=== PATIENT | female | born 1940 | race African-American/Black ===

== ENCOUNTER 2021-09-12 15:23 | Inpatient (IN) | payer MEDICARE, BC ==
[2021-09-12 16:29] LABS: #Lymphocytes 0.9 thou/uL (1.20-3.40); #Neutrophils 11.5 thou/uL (1.40-6.50); %Basophils 0.3 % (0.0-1.0); %Eosinophils 0.2 % (0.0-10.0); %Lymphocytes 6.9 % (21.0-51.0); %Monocytes 7.3 % (0.0-10.0); %Neutrophils 85.3 % (42.0-75.0); Hemoglobin 11.2 g/dL (12.0-16.0); Mean Corpuscular HGB CONC 33.1 g/dL (32.0-36.0); Mean Corpuscular Hemoglobin 29.5 pg (27.0-31.0); Mean Corpuscular Volume 88.9 fL (78.0-98.0); Mean Platelet Volume 6.8 fL (7.4-10.4); Platelet Count 364 thou/uL (130-400); Red Blood Cell (RBC) Count 3.81 mill/uL (4.20-5.40); White Blood Cell (WBC) Count 13.5 thou/uL (4.8-10.8)
[2021-09-12 16:39] LABS: INR-International Normal Ratio 1.1; Prothrombin Time 13.8 sec (12.0-14.7)
[2021-09-12 16:40] LABS: PTT 33.6 sec (22.9-36.1)
[2021-09-12 16:58] LABS: ALT (SGPT) 11 U/L (8-55); AST (SGOT) 17 U/L (5-34); Albumin 3.6 g/dL (3.4-4.8); Alkaline Phosphatase 108 U/L (40-110); Anion Gap 13 mmol/L (10-20); BUN (Urea Nitrogen) 24 mg/dL (9.8-20.1); Bilirubin, Total 0.5 mg/dL (0.2-1.2); Calc. Creatinine Clearance 0 mL/min (70-130); Calcium 9.7 mg/dL (7.8-10.44); Carbon Dioxide 25 mmol/L (23-31); Chloride 98 mmol/L (98-107); Globulin 3.4 g/dL (2.4-3.5); Glucose 132 mg/dL (83-110); Potassium 4.6 mmol/L (3.5-5.1); Sodium 131 mmol/L (136-145)
[2021-09-12 18:05] LABS: Bilirubin Negative (Negative); Blood, Urine Negative (Negative); Clarity Extra Turbid (Clear); Glucose, Urine (Dipstick) Normal (Negative); Ketone, Urine Negative (Negative); Leukocyte Negative Leu/uL (Negative); Nitrite Negative (Negative); Protein, Urine (Dipstick) 50 mg/dL (Neg-Trace); RBC/HPF 0-3 HPF (0-3); Specific Gravity, Urine 1.025 (1.002-1.036); Squamous Epithelial 0-3 HPF (0-3); Urobilinogen Normal mg/dL (Less than 2); WBC/HPF None Seen HPF (0-3); pH, Urine 5.5 (5.0-9.0)
[2021-09-12 18:06] LABS: Bacteria/HPF 1+ HPF (None Seen)
[2021-09-12] MEDS ORDERED: Aspirin Chewable 81 MG TAB ONE (19:08)
[2021-09-12] MEDS ORDERED: Ondansetron PF 4 MG/2 ML Vial IVP PRN (20:13)
[2021-09-12] MEDS ORDERED: Acetaminophen 325 MG TAB PO PRN (20:13)
[2021-09-12] MEDS ORDERED: Acetaminophen 650 MG Suppository PR PRN (20:13)
[2021-09-12] MEDS ORDERED: Ondansetron ODT 4 MG TAB PO PRN (20:13)
[2021-09-12] MEDS ORDERED: Atorvastatin Calcium 40 MG TAB PO SCH (22:00)
[2021-09-12 22:04] VITALS: BMI 21.0
[2021-09-13] MEDS ORDERED: Dextrose 50% Abboject 50 ML SYRINGE SLOW IVP PRN (01:29)
[2021-09-13] MEDS ORDERED: HumaLOG 300 UNITS/3 ML VIAL SC PRN (01:29)
[2021-09-13] MEDS ORDERED: Dextrose 5% in Water 1,000 ML IV PRN (01:29)
[2021-09-13] MEDS ORDERED: Sodium Chloride 0.9% 1,000 ML IV SCH (01:45)
[2021-09-13 01:46] LABS: Magnesium 1.6 mg/dL (1.6-2.6)
[2021-09-13 06:13] LABS: #Eosinphils 0.1 thou/uL (0.0-0.7); #Lymphocytes 2.3 thou/uL (1.20-3.40); #Monocytes 1.1 thou/uL (0.11-0.59); %Basophils 0.1 % (0.0-1.0); %Lymphocytes 20.1 % (21.0-51.0); %Monocytes 9.7 % (0.0-10.0); %Neutrophils 69.1 % (42.0-75.0); Hemoglobin 10.5 g/dL (12.0-16.0); Mean Corpuscular HGB CONC 31.6 g/dL (32.0-36.0); Mean Corpuscular Hemoglobin 28.6 pg (27.0-31.0); Mean Corpuscular Volume 90.5 fL (78.0-98.0); Mean Platelet Volume 6.5 fL (7.4-10.4); Platelet Count 382 thou/uL (130-400); Red Blood Cell (RBC) Count 3.69 mill/uL (4.20-5.40); White Blood Cell (WBC) Count 11.6 thou/uL (4.8-10.8)
[2021-09-13 06:19] LABS: Anion Gap 12 mmol/L (10-20); BUN (Urea Nitrogen) 22 mg/dL (9.8-20.1); Calc. Creatinine Clearance 44 mL/min (70-130); Calcium 9.3 mg/dL (7.8-10.44); Carbon Dioxide 27 mmol/L (23-31); Cardiac Risk 2.8 (Less than 4.5); Chloride 100 mmol/L (98-107); Cholesterol 138 mg/dl (< 200 Desired); Glucose 63 mg/dL (83-110); HDL Cholesterol 49 mg/dL (>60 Neg Risk); LDL Cholesterol, Calculated 76 mg/dL; Potassium 4.2 mmol/L (3.5-5.1); Sodium 135 mmol/L (136-145); Triglycerides 65 mg/dL (Less than 150)
[2021-09-13] MEDS: Enoxaparin Sodium 40 MG/0.4 ML SYRINGE SC SCH (08:20)
[2021-09-13] MEDS: Aspirin 81 mg Enteric Coated Tablet PO SCH (08:20)
[2021-09-13] MEDS ORDERED: FLU VACC QS2021-22(65YR UP)/PF 240 MCG/0.7 ML SYRINGE IM ONE (09:00)
[2021-09-13 11:42] LABS: SARS-CoV-2 PCR by NAA Not Detected (NotDetected)
[2021-09-13] MEDS ORDERED: Clopidogrel Bisulfate 75 MG TAB PO SCH (13:45)
[2021-09-13] MEDS ORDERED: Losartan 25 MG TAB PO SCH (16:45)
[2021-09-13] MEDS: HumaLOG 300 UNITS/3 ML VIAL SC PRN (17:11)
[2021-09-13] MEDS ORDERED: Atorvastatin Calcium 10 MG TAB PO SCH (21:00)
[2021-09-13] MEDS: Atorvastatin Calcium 40 MG TAB PO SCH (22:49)
[2021-09-14] MEDS: HumaLOG 300 UNITS/3 ML VIAL SC PRN (05:34)
[2021-09-14] MEDS: Amlodipine 5 MG TAB PO SCH ×2 (08:26→08:32)
[2021-09-14] MEDS ORDERED: Aspirin Chewable 81 MG TAB PO SCH (09:00)
[2021-09-14] MEDS ORDERED: Clopidogrel Bisulfate 75 MG TAB PO SCH (09:00)
[2021-09-14] MEDS ORDERED: Amlodipine 5 MG TAB PO SCH (09:00)
[2021-09-14] MEDS: Losartan 25 MG TAB PO SCH (10:22)
[2021-09-14] MEDS: Aspirin 81 mg Enteric Coated Tablet PO SCH (10:23)
[2021-09-14] MEDS: Enoxaparin Sodium 40 MG/0.4 ML SYRINGE SC SCH (10:23)
[2021-09-14] MEDS: Clopidogrel Bisulfate 75 MG TAB PO SCH (10:23)
[2021-09-14 10:27] LABS: #Basophils 0.1 thou/uL (0.0-0.2); #Eosinphils 0.1 thou/uL (0.0-0.7); #Lymphocytes 1.3 thou/uL (1.20-3.40); #Monocytes 0.9 thou/uL (0.11-0.59); #Neutrophils 8.8 thou/uL (1.40-6.50); %Basophils 0.6 % (0.0-1.0); %Eosinophils 0.8 % (0.0-10.0); %Lymphocytes 11.7 % (21.0-51.0); %Monocytes 7.9 % (0.0-10.0); Hemoglobin 11.2 g/dL (12.0-16.0); Mean Corpuscular HGB CONC 31.4 g/dL (32.0-36.0); Mean Corpuscular Hemoglobin 28.6 pg (27.0-31.0); Mean Corpuscular Volume 91.1 fL (78.0-98.0); Mean Platelet Volume 6.9 fL (7.4-10.4); Platelet Count 375 thou/uL (130-400); RBC Distribution Width 11.9 % (11.5-14.5); Red Blood Cell (RBC) Count 3.91 mill/uL (4.20-5.40); White Blood Cell (WBC) Count 11.1 thou/uL (4.8-10.8)
[2021-09-14] MEDS: Atorvastatin Calcium 40 MG TAB PO SCH (21:22)
[2021-09-15] MEDS: hydrALAZINE 20 MG/ML VIAL SLOW IVP PRN ×2 (00:38→17:51)
[2021-09-15] MEDS: Labetalol HCl 100 MG/20 ML VIAL SLOW IVP PRN ×2 (04:37→18:33)
[2021-09-15] MEDS: Losartan 25 MG TAB PO SCH (08:44)
[2021-09-15] MEDS: Clopidogrel Bisulfate 75 MG TAB PO SCH (08:44)
[2021-09-15] MEDS: Aspirin 81 mg Enteric Coated Tablet PO SCH (08:44)
[2021-09-15] MEDS: Enoxaparin Sodium 40 MG/0.4 ML SYRINGE SC SCH (08:44)
[2021-09-15] MEDS ORDERED: Amlodipine 5 MG TAB PO SCH (09:00)
[2021-09-15 11:04] LABS: Hemoglobin 11.9 g/dL (12.0-16.0); Mean Corpuscular HGB CONC 30.9 g/dL (32.0-36.0); Mean Corpuscular Hemoglobin 27.7 pg (27.0-31.0); Mean Corpuscular Volume 89.7 fL (78.0-98.0); Mean Platelet Volume 6.8 fL (7.4-10.4); Platelet Count 437 thou/uL (130-400); Red Blood Cell (RBC) Count 4.28 mill/uL (4.20-5.40); White Blood Cell (WBC) Count 10.4 thou/uL (4.8-10.8)
[2021-09-15 11:19] LABS: Anion Gap 16 mmol/L (10-20); BUN (Urea Nitrogen) 17 mg/dL (9.8-20.1); Calc. Creatinine Clearance 47 mL/min (70-130); Carbon Dioxide 25 mmol/L (23-31); Chloride 99 mmol/L (98-107); Potassium 4.2 mmol/L (3.5-5.1); Sodium 136 mmol/L (136-145)
[2021-09-15 11:20] LABS: Calcium 9.7 mg/dL (7.8-10.44); Glucose 156 mg/dL (83-110); Magnesium 1.7 mg/dL (1.6-2.6)
[2021-09-15] MEDS ORDERED: Carvedilol 6.25 MG TAB PO SCH (15:15)
[2021-09-15] MEDS: HumaLOG 300 UNITS/3 ML VIAL SC PRN (17:53)
[2021-09-15] MEDS: Atorvastatin Calcium 40 MG TAB PO SCH ×2 (21:17→21:34)
[2021-09-15] MEDS: Amlodipine 5 MG TAB PO SCH ×2 (21:17→21:38)
[2021-09-16] MEDS: hydrALAZINE 20 MG/ML VIAL SLOW IVP PRN (04:02)
[2021-09-16] MEDS: Labetalol HCl 100 MG/20 ML VIAL SLOW IVP PRN (04:03)
[2021-09-16] MEDS: HumaLOG 300 UNITS/3 ML VIAL SC PRN (05:40)
[2021-09-16] MEDS: Aspirin 81 mg Enteric Coated Tablet PO SCH (07:59)
[2021-09-16] MEDS: Losartan 25 MG TAB PO SCH (07:59)
[2021-09-16] MEDS ORDERED: Carvedilol 6.25 MG TAB PO SCH ×3 (08:00→17:00)
[2021-09-16] MEDS: Enoxaparin Sodium 40 MG/0.4 ML SYRINGE SC SCH (08:00)
[2021-09-16] MEDS: Clopidogrel Bisulfate 75 MG TAB PO SCH (08:02)
[2021-09-16] MEDS ORDERED: Amlodipine 10 MG TAB PO SCH (09:00)
[2021-09-16 16:41] VITALS: TEMP 97.9
[2021-09-16 17:04] VITALS: BP 175/78
== END 2021-09-16 18:05 | DRG 65 ==
LOC: ERS 15:23 → INTOOBSV 18:59 → 3SE 18:59 → OBSVTOIN 09-13 11:49
PROVIDERS: ADMIT Student in an Organized Health Care Education/Training Program; ATTEND Internal Medicine
DX: I63.9 Cerebral infarction, unspecified (principal); G81.94 Hemiplegia, unspecified affecting left nondominant side; E87.1 Hypo-osmolality and hyponatremia; I47.1 Supraventricular tachycardia; E11.9 Type 2 diabetes mellitus without complications; F03.90 Unspecified dementia, unspecified severity, without behavioral disturbance, psychotic disturbance, mood disturbance, and anxiety; I10 Essential (primary) hypertension; D72.829 Elevated white blood cell count, unspecified; D64.9 Anemia, unspecified; R47.81 Slurred speech; Z20.822 Contact with and (suspected) exposure to COVID-19; I08.1 Rheumatic disorders of both mitral and tricuspid valves; Z88.5 Allergy status to narcotic agent; Z91.010 Allergy to peanuts; Z90.710 Acquired absence of both cervix and uterus; Z85.3 Personal history of malignant neoplasm of breast
CPT/HCPCS: 36415; 36416; 51701; 70450; 70551; 71045; 71046; 80048; 80053; 80061; 81003; 81015; 83735; 84484; 85025; 85027; 85610; 85730; 90471; 90662; 93005; 93306; 93880; 95712; 95819; 95957; 96372; G0008; G0378; J0360; J1650; J1815; J7050; U0003; U0005